=== PATIENT | female | born 1975 | race Caucasian/White ===

== ENCOUNTER 2021-06-24 21:26 | Emergency (ER) | payer OTHER ==
[~2021-06-24] VITALS: Ht 170.2 cm; Wt 63.5 kg
--- NOTE | 2021-06-24 21:30 | NUR ---
[id number] L LEG PAIN X 3 DAYS AND N/V TODAY. PATIENT PLACED COMFORTABLY ON ER BED. VITALS CHECKED
[2021-06-24] MEDS ORDERED: ONDANSETRON HCL/PF 4 MG/2 ML VIAL IV ONE (22:30)
[2021-06-24] MEDS ORDERED: HYDROMORPHONE INJ 2 MG/ML DISP.SYRIN IV ONE (22:30)
[2021-06-24] MEDS ORDERED: ONDANSETRON HCL/PF 4 MG/2 ML VIAL ONE (22:40)
[2021-06-24] MEDS ORDERED: HYDROMORPHONE INJ 2 MG/ML DISP.SYRIN ONE (22:41)
--- NOTE | 2021-06-24 22:57 | NUR ---
CALLED [facility] SPOKE WITH NURSE HICKMAN TO REQUEST MEDICAL RECORDS. WILL BE FAXING RECORDS
--- NOTE | 2021-06-24 23:27 | NUR ---
Malika lynne in [facility] - 06/24/21 at 2334 by ALESSANDRA MANUELITO PEACOCK
--- NOTE | 2021-06-24 23:37 | NUR ---
[facility] ETA 45 MINS - 1 HOUR.
--- NOTE | 2021-06-24 23:39 | NUR ---
Patient discharged to home in stable condition. Written and verbal after care instructions given. Patient verbalizes understanding of instruction.
--- NOTE | 2021-06-25 00:25 | NUR ---
REPORT GIVEN TO XENIA GAMBINO AT [facility]
[2021-06-25 00:28] VITALS: BP 136/78
== END 2021-06-25 00:43 ==
LOC: ER 21:40
DX: R11.0 Nausea (principal); M79.605 Pain in left leg; R68.0 Hypothermia, not associated with low environmental temperature; Z60.2 Problems related to living alone
CPT/HCPCS: 99284; J1170; J2405